=== PATIENT | male | born 1985 | race Caucasian/White ===

== ENCOUNTER 2020-10-17 11:00 | Emergency (ER) | payer OTHER ==
[~2020-10-17] VITALS: Ht 182.9 cm; Wt 127.0 kg
[2020-10-17] MEDS ORDERED: ONDANSETRON HCL INJ 2MG/ML 2ML 2 MG/ML VIAL IV STA (11:27)
[2020-10-17] MEDS ORDERED: SODIUM CHLORIDE 0.9% 1000ML 1,000 ML IV STA (11:27)
[2020-10-17] MEDS ORDERED: PANTOPRAZOLE 40 MG 10ML VIAL IV STA (11:27)
[2020-10-17 11:41] LABS: BASOPHILS % 0.6 % (0.0-1.0); EOSINOPHILS # (AUTO) 0.1 (0.0-0.4); EOSINOPHILS % 0.9 % (0.0-6.0); HEMATOCRIT 45.3 % (38.2-49.6); HEMOGLOBIN 15.7 g/dL (14.0-18.0); LYMPHOCYTES # (AUTO) 2.4 (1.0-3.2); LYMPHOCYTES % 37.3 % (18.0-39.1); MEAN CORPUSCULAR HEMOGLOBIN 29.6 pg (28-32); MEAN CORPUSCULAR HGB CONC 34.7 g/dL (31-35); MEAN CORPUSCULAR VOLUME 85.5 fL (81-99); MONOCYTES # (AUTO) 0.6 (0.2-0.8); MONOCYTES % 8.5 % (4.4-11.3); NEUTROPHILS # (AUTO) 3.4 (2.1-6.9); NEUTROPHILS % 52.2 % (38.7-80.0); PLATELET COUNT 203 x10e3/uL (140-360); RED CELL DISTRIBUTION WIDTH 12.2 % (11.7-14.4)
[2020-10-17] MEDS ORDERED: MECLIZINE HCL 12.5 MG TAB PO ONE (12:00)
[2020-10-17 12:02] LABS: ALANINE AMINOTRANSFERASE 80 IU/L (0-55); ALKALINE PHOSPHATASE 52 IU/L (40-150); ANION GAP 17.8 mmol/L (8-16); BLOOD UREA NITROGEN 10 mg/dL (7-26); BUN/CREATININE RATIO 10 (6-25); CALCIUM 9.4 mg/dL (8.4-10.2); CARBON DIOXIDE 23 mmol/L (22-29); CHLORIDE 105 mmol/L (98-107); CREATININE, SERUM 0.97 mg/dL (0.72-1.25); EST GLOMERULAR FILTRATION RATE > 60 ML/MIN (60-); GLUCOSE 123 mg/dL (74-118); POTASSIUM 3.8 mmol/L (3.5-5.1); SODIUM 142 mmol/L (136-145)
[2020-10-17 12:08] LABS: ALBUMIN 4.9 g/dL (3.5-5.0); ALBUMIN/GLOBULIN RATIO 1.8 (0.8-2.0)
== END 2020-10-17 14:27 | disposition home or self-care (01) ==
LOC: ER 11:30
DX: R11.2 Nausea with vomiting, unspecified (principal); R42 Dizziness and giddiness; I10 Essential (primary) hypertension
CPT/HCPCS: 36415; 70450; 80053; 83735; 85025; 99284; C9113; J2405; J7030; J8597

== ENCOUNTER 2021-05-16 14:35 | Emergency (ER) | payer OTHER ==
[~2021-05-16] VITALS: Ht 182.9 cm; Wt 127.0 kg
[2021-05-16] MEDS ORDERED: KETOROLAC TROMETHAMINE 30 MG/ML VIAL IV STA (15:52)
[2021-05-16] MEDS ORDERED: SODIUM CHLORIDE 0.9% 1000ML 1,000 ML IV STA (15:52)
[2021-05-16] MEDS ORDERED: BAMLANIVIMAB IV ONE (16:30)
[2021-05-16] MEDS ORDERED: ETESEVIMAB IV ONE (16:30)
[2021-05-16] MEDS ORDERED: HYDROCODONE/APAP 5MG-325MG TAB PO ONE (18:30)
[2021-05-16 19:38] VITALS: BP 124/88
== END 2021-05-16 19:40 | disposition home or self-care (01) ==
LOC: ER 15:09
DX: U07.1 COVID-19 (principal)
CPT/HCPCS: 99283; J1885; J7030

== ENCOUNTER 2022-03-08 01:08 | Emergency (ER) | payer OTHER ==
[~2022-03-08] VITALS: Ht 182.9 cm; Wt 124.7 kg
[2022-03-08] MEDS ORDERED: DEXAMETHASONE 4 MG TAB PO STA (01:37)
[2022-03-08] MEDS ORDERED: PREDNISONE20 MG PO (01:40)
[2022-03-08] MEDS ORDERED: ACETAMINOPHEN-1 EAC4 PO (01:40)
[2022-03-08] MEDS ORDERED: DEXAMETHASONE SOD PHOS 10 MG/1 ML VIAL IM ONE (01:45)
[2022-03-08] MEDS ORDERED: DEXAMETHASONE SOD PHOS 10 MG/1 ML VIAL ONE (01:49)
== END 2022-03-08 02:12 | disposition home or self-care (01) ==
LOC: ER 01:15
DX: J03.90 Acute tonsillitis, unspecified (principal)
CPT/HCPCS: 99282; J1100

== ENCOUNTER 2023-03-21 13:54 | Emergency (ER) | payer OTHER ==
[~2023-03-21] VITALS: Ht 182.9 cm; Wt 124.7 kg
[~2023-03-21 13:54] MED LIST: ACETAMINOPHEN-1 EAC4 PO; PREDNISONE20 MG PO
[2023-03-21] MEDS ORDERED: KETOROLAC TROMETHAMINE 30 MG/ML VIAL IV STA (14:38)
[2023-03-21 14:39] LABS: BASOPHILS % 0.8 % (0.0-1.0); EOSINOPHILS # (AUTO) 0.1 (0.0-0.4); EOSINOPHILS % 1.2 % (0.0-6.0); HEMATOCRIT 44.7 % (38.2-49.6); HEMOGLOBIN 15.4 g/dL (14.0-18.0); LYMPHOCYTES # (AUTO) 2.1 (1.0-3.2); LYMPHOCYTES % 42.9 % (18.0-39.1); MEAN CORPUSCULAR HEMOGLOBIN 29.8 pg (28-32); MEAN CORPUSCULAR HGB CONC 34.5 g/dL (31-35); MEAN CORPUSCULAR VOLUME 86.6 fL (81-99); MONOCYTES # (AUTO) 0.5 (0.2-0.8); MONOCYTES % 9.8 % (4.4-11.3); NEUTROPHILS # (AUTO) 2.3 (2.1-6.9); NEUTROPHILS % 45.1 % (38.7-80.0); PLATELET COUNT 196 x10e3/uL (140-360); RED BLOOD COUNT 5.16 x10e6/uL (4.3-5.7); RED CELL DISTRIBUTION WIDTH 12.3 % (11.7-14.4)
[2023-03-21 15:00] LABS: ALBUMIN 4.5 g/dL (3.5-5.0); ALBUMIN/GLOBULIN RATIO 1.5 (0.8-2.0); ANION GAP 12.6 mmol/L (8-16); CALCIUM 9.2 mg/dL (8.4-10.2); CREATININE, SERUM 0.83 mg/dL (0.72-1.25); POTASSIUM 3.6 mmol/L (3.5-5.1)
[2023-03-21] MEDS ORDERED: IOPAMIDOL 370 MG/ML 100 ML INFUS..BTL INJ ONE (16:18)
[2023-03-21 17:20] VITALS: O2SAT 100
== END 2023-03-21 17:29 | disposition home or self-care (01) ==
LOC: ER 14:06
DX: R10.32 Left lower quadrant pain (principal); K63.89 Other specified diseases of intestine; I10 Essential (primary) hypertension; F90.9 Attention-deficit hyperactivity disorder, unspecified type
CPT/HCPCS: 36415; 74177; 80053; 85025; 99284; J1885; Q9967

== ENCOUNTER 2024-07-11 18:26 | Observation (INO) | payer OTHER ==
[~2024-07-11] VITALS: Ht 182.9 cm; Wt 124.7 kg
[2024-07-11 18:45] VITALS: TEMP 98.4
[2024-07-11 19:18] LABS: HEMATOCRIT 44.5 % (38.2-49.6); HEMOGLOBIN 15.4 g/dL (14.0-18.0); RED BLOOD COUNT 5.15 x10e6/uL (4.3-5.7); WHITE BLOOD COUNT 5.38 x10e3/uL (4.8-10.8)
[2024-07-11 19:19] LABS: MEAN CORPUSCULAR HEMOGLOBIN 29.9 pg (28-32); MEAN CORPUSCULAR HGB CONC 34.6 g/dL (31-35); MEAN CORPUSCULAR VOLUME 86.4 fL (81-99); PLATELET COUNT 197 x10e3/uL (140-360); RED CELL DISTRIBUTION WIDTH 11.9 % (11.7-14.4)
[2024-07-11 19:20] LABS: BASOPHILS % 0.6 % (0.0-1.0); EOSINOPHILS % 1.9 % (0.0-6.0); LYMPHOCYTES % 40.7 % (18.0-39.1); MONOCYTES % 9.3 % (4.4-11.3); NEUTROPHILS # (AUTO) 2.6 (2.1-6.9); NEUTROPHILS % 47.3 % (38.7-80.0)
[2024-07-11 19:21] LABS: EOSINOPHILS # (AUTO) 0.1 (0.0-0.4); LYMPHOCYTES # (AUTO) 2.2 (1.0-3.2); MONOCYTES # (AUTO) 0.5 (0.2-0.8)
[2024-07-11] MEDS: KETOROLAC TROMETHAMINE 30 MG/ML VIAL IV ONE (19:26)
[2024-07-11 19:31] LABS: ALANINE AMINOTRANSFERASE 93 IU/L (0-55); ALBUMIN 4.5 g/dL (3.5-5.0); ALBUMIN/GLOBULIN RATIO 1.7 (0.8-2.0); ALKALINE PHOSPHATASE 58 IU/L (40-150); ANION GAP 13.4 mmol/L (8-16); BLOOD UREA NITROGEN 17 mg/dL (7-26); BUN/CREATININE RATIO 17 (6-25); CALCIUM 9.4 mg/dL (8.4-10.2); CARBON DIOXIDE 26 mmol/L (22-29); CHLORIDE 104 mmol/L (98-107); CREATINE KINASE 130 IU/L (30-200); CREATININE, SERUM 1.01 mg/dL (0.72-1.25); EST GLOMERULAR FILTRATION RATE 98 ML/MIN (>=60); GLUCOSE 228 mg/dL (74-118); POTASSIUM 4.4 mmol/L (3.5-5.1); SODIUM 139 mmol/L (136-145); TOTAL PROTEIN 7.2 g/dL (6.5-8.1)
[2024-07-11 19:38] LABS: TROPONIN I < 0.001 ng/mL (0-0.300)
[2024-07-11 20:14] VITALS: PULSE 87; RESP 19
[2024-07-11] MEDS: ASPIRIN 325 MG TAB PO STA (20:24)
[2024-07-11] MEDS: SODIUM CHLORIDE 0.9% 1000ML 1,000 ML IV SCH (20:24)
[2024-07-11 20:58] VITALS: BP 159/102; PULSE 64; RESP 18; TEMP 97.9; O2SAT 100
[2024-07-11 21:00] VITALS: BP 159/102; PULSE 64; RESP 18; TEMP 97.9; O2SAT 100; O2SAT 99
[2024-07-11] MEDS: Morphine 4mg INJECTION 4 MG/ML INJ IV PRN (22:23)
[2024-07-11] MEDS: ONDANSETRON HCL INJ 2MG/ML 2ML 2 MG/ML VIAL IV PRN (22:23)
[2024-07-11] MEDS ORDERED: PROZAC40 MG PO (22:30)
[2024-07-11] MEDS ORDERED: ADDERALL 20 MG20 MG PO (22:30)
[2024-07-11 23:31] VITALS: BP 146/96; PULSE 69; RESP 18; TEMP 97.5; O2SAT 100
[2024-07-12] VITALS (7 sets, daily range): BP systolic 123–147; BP diastolic 72–95; PULSE 53–77; RESP 16–18; TEMP 97.4–98; O2SAT 95–100
[2024-07-12 06:06] LABS: BASOPHILS % 0.6 % (0.0-1.0); EOSINOPHILS # (AUTO) 0.1 (0.0-0.4); EOSINOPHILS % 1.9 % (0.0-6.0); HEMATOCRIT 43.2 % (38.2-49.6); HEMOGLOBIN 14.4 g/dL (14.0-18.0); LYMPHOCYTES # (AUTO) 2.2 (1.0-3.2); LYMPHOCYTES % 41.3 % (18.0-39.1); MEAN CORPUSCULAR HEMOGLOBIN 29.9 pg (28-32); MEAN CORPUSCULAR HGB CONC 33.3 g/dL (31-35); MEAN CORPUSCULAR VOLUME 89.6 fL (81-99); MONOCYTES # (AUTO) 0.6 (0.2-0.8); MONOCYTES % 10.7 % (4.4-11.3); NEUTROPHILS # (AUTO) 2.4 (2.1-6.9); NEUTROPHILS % 45.3 % (38.7-80.0); PLATELET COUNT 162 x10e3/uL (140-360); RED BLOOD COUNT 4.82 x10e6/uL (4.3-5.7); WHITE BLOOD COUNT 5.23 x10e3/uL (4.8-10.8)
[2024-07-12 06:32] LABS: ALBUMIN 4.1 g/dL (3.5-5.0); ALBUMIN/GLOBULIN RATIO 1.9 (0.8-2.0); ANION GAP 12.7 mmol/L (8-16); BILIRUBIN,TOTAL 1.1 mg/dL (0.2-1.2); CALCIUM 8.7 mg/dL (8.4-10.2); CREATININE, SERUM 0.98 mg/dL (0.72-1.25); POTASSIUM 3.7 mmol/L (3.5-5.1); TOTAL PROTEIN 6.3 g/dL (6.5-8.1)
[2024-07-12 06:41] LABS: TROPONIN I 0.003 ng/mL (0-0.300)
[2024-07-12] MEDS ORDERED: SIMETHICONE 80 MG CHEW PO PRN (09:00)
[2024-07-12] MEDS ORDERED: DOCUSATE SODIUM 100 MG CAP PO PRN (09:00)
[2024-07-12] MEDS ORDERED: MELATONIN 3 MG TAB PO PRN (09:00)
[2024-07-12] MEDS ORDERED: ACETAMINOPHEN 325 MG TAB PO PRN (09:00)
[2024-07-12] MEDS ORDERED: METOPROLOL TARTRATE INJ 1 MG/ML VIAL IV PRN (09:00)
[2024-07-12] MEDS ORDERED: ALBUTEROL/IPRATROPIUM 3 ML NEB NEB PRN (09:00)
[2024-07-12] MEDS ORDERED: GUAIFENESIN/DEXTROMETHORPHAN LIQD 5 ML UDC NG PRN (09:00)
[2024-07-12] MEDS: FAMOTIDINE 20 MG TAB PO SCH ×2 (09:34→16:43)
[2024-07-12] MEDS: FLUOXETINE HCL 20 MG CAP PO SCH (09:35)
[2024-07-12] MEDS: LORATADINE 10 MG TAB PO SCH (09:35)
[2024-07-12] MEDS: ASPIRIN 325 MG TAB PO SCH (09:36)
[2024-07-12] MEDS: Doxycycline IV 100 MG in SODIUM CHLORIDE 0.9% 100 ML IV SCH (09:36)
[2024-07-12] MEDS: HYDRALAZINE HCL 10 MG TAB PO SCH (09:46)
[2024-07-12 10:09] LABS: CHOL/HDL RATIO 5.1 (3.9-4.7)
[2024-07-12] MEDS: BENZONATATE 100 MG CAP PO SCH (13:46)
[2024-07-12 14:31] LABS: TROPONIN I 0.005 ng/mL (0-0.300)
[2024-07-12] MEDS: ENOXAPARIN SOD INJ 40 MG/0.4 ML SYR SC SCH (16:40)
[2024-07-12] MEDS ORDERED: ENOXAPARIN SOD INJ 40 MG/0.4 ML SYR SC SCH (17:00)
[2024-07-13 03:44] VITALS: BP 145/72; PULSE 53; RESP 18; TEMP 97.6; O2SAT 100
[2024-07-13 04:00] VITALS: BP 112/67; PULSE 66; RESP 20; TEMP 97.6; O2SAT 100
[2024-07-13 05:40] LABS: BASOPHILS % 0.7 % (0.0-1.0); EOSINOPHILS # (AUTO) 0.1 (0.0-0.4); EOSINOPHILS % 2.7 % (0.0-6.0); HEMATOCRIT 42.2 % (38.2-49.6); HEMOGLOBIN 14.1 g/dL (14.0-18.0); LYMPHOCYTES # (AUTO) 2.2 (1.0-3.2); LYMPHOCYTES % 52.3 % (18.0-39.1); MEAN CORPUSCULAR HEMOGLOBIN 30.1 pg (28-32); MEAN CORPUSCULAR HGB CONC 33.4 g/dL (31-35); MEAN CORPUSCULAR VOLUME 90.2 fL (81-99); MONOCYTES # (AUTO) 0.4 (0.2-0.8); MONOCYTES % 9.2 % (4.4-11.3); NEUTROPHILS # (AUTO) 1.5 (2.1-6.9); NEUTROPHILS % 34.9 % (38.7-80.0); PLATELET COUNT 152 x10e3/uL (140-360); RED BLOOD COUNT 4.68 x10e6/uL (4.3-5.7); RED CELL DISTRIBUTION WIDTH 11.9 % (11.7-14.4); WHITE BLOOD COUNT 4.15 x10e3/uL (4.8-10.8)
[2024-07-13 07:39] LABS: ANION GAP 11.1 mmol/L (8-16); CALCIUM 8.6 mg/dL (8.4-10.2); CREATININE, SERUM 0.93 mg/dL (0.72-1.25)
[2024-07-13 07:41] LABS: POTASSIUM 3.1 mmol/L (3.5-5.1)
[2024-07-13 08:54] VITALS: BP_SYST 122; BP_SYST 125; BP_DIAS 59; BP_DIAS 88; PULSE 57; RESP 20; TEMP 97.7; O2SAT 100; O2SAT 95
[2024-07-13] MEDS: LISINOPRIL 2.5 MG TAB PO SCH (09:12)
[2024-07-13] MEDS ORDERED: LORATADINE10 MG PO (10:53)
[2024-07-13] MEDS ORDERED: BENZONATATE100 MG PO (10:53)
[2024-07-13] MEDS ORDERED: DOXYCYCLINE HY100 MG PO (10:53)
[2024-07-13] MEDS ORDERED: LISINOPRIL2.5 MG PO (10:53)
[2024-07-13] MEDS ORDERED: METFORMIN HCL500 MG PO (10:56)
[2024-07-13] MEDS ORDERED: PRAVASTATIN SOD40 MG PO (10:56)
[2024-07-13 11:08] VITALS: BP 132/68; PULSE 62; RESP 18; TEMP 98.1; O2SAT 98
[2024-07-13 11:22] VITALS: PULSE 62; RESP 18; O2SAT 95
== END 2024-07-13 11:45 | disposition home or self-care (01) ==
LOC: ER 18:34 → ERHOLD 20:09 → MED/SURG2 20:45
PROVIDERS: ADMIT Internal Medicine; ATTEND Internal Medicine
DX: J20.9 Acute bronchitis, unspecified (principal); E11.65 Type 2 diabetes mellitus with hyperglycemia; Z79.84 Long term (current) use of oral hypoglycemic drugs; Z13.1 Encounter for screening for diabetes mellitus; R07.89 Other chest pain; E66.9 Obesity, unspecified; Z68.37 Body mass index [BMI] 37.0-37.9, adult; R74.01 Elevation of levels of liver transaminase levels; I10 Essential (primary) hypertension; I45.10 Unspecified right bundle-branch block; F90.9 Attention-deficit hyperactivity disorder, unspecified type; K76.0 Fatty (change of) liver, not elsewhere classified; Z11.52 Encounter for screening for COVID-19; Z79.899 Other long term (current) drug therapy
CPT/HCPCS: 36415 ×3; 71045; 80048; 80053 ×2; 80061; 82550 ×2; 83036; 83690; 83880; 84484 ×2; 85025 ×3; 87400; 93005; 93306; 94799; 99252; 99284; G0378 ×3; J1650; J1885; J2270 ×3; J2405 ×3; J7030 ×2; J7050; U0002